=== PATIENT | male | born 1935 | race Caucasian/White ===

== ENCOUNTER 2016-09-03 12:38 | Day surgery (SDC) | payer MEDICARE, BC, OTHER ==
[~2016-09-03 12:38] MED LIST: CIPROFLOXACIN HCL 500 MG TABLET PO PRN
[2016-09-03] MEDS ORDERED: LIDOCAINE HCL 10 APPL CARTRIDGE TP ONE (13:29)
--- NOTE | 2016-09-03 13:38 | OR ---
Operative Report - Dictated Report Narrative: Location: Main OR Anesthesia: Lidocaine jelly per urethra Preoperative Diagnosis: Gross hematuria Postoperative Diagnosis: BPH with obstruction Procedure: #1 flexible cystoscopy with washing for cytology Indications: 81-year-old male with gross hematuria. CT urogram with small renal stone nonsurgical, nonspecific bowel findings. He has never had a colonoscopy. Presents today for cystoscopy to assess for potential bladder pathology/cause of hematuria Description: Consent obtained. Placed in the supine position. Prepped and draped. Time-out taken . Flexible Scope inserted into the urethra and navigated to the bladder with ease. No tumors stones or suspicious lesions mild trabeculation and decreased capacity Ureters normal in number and position On retroflexion fairly prominent intravesical prostate but broad-based. No median lobe. Does look a bit obstructing. Medium, bilobar hypertrophy again does look somewhat obstructing with some hypervascularity. Normal urethra minus some nonspecific urethritis EBL: 0 Specimen: Washing for cytology and culture Condition: tolerate procedure Important Findings: BPH with obstruction. Cytology pending. FOLLOW UP: 6 month ultrasound/flow/UA/creatinine. Gen. surgery for consideration of colonoscopy as he has never had one. Not sure as to the clinical significance of the nonspecific CT scan findings
[2016-09-03 14:12] VITALS: BP 127/72
== END 2016-09-03 12:39 | disposition home or self-care (01) ==
LOC: AMB 12:38
PROVIDERS: ATTEND Urology
PROC: 3E1K88X Irrigation of Genitourinary Tract using Irrigating Substance, Via Natural or Artificial Opening Endoscopic, Diagnostic (ICD-10-PCS; 2016-09-03)
PROC: 0TJB8ZZ Inspection of Bladder, Via Natural or Artificial Opening Endoscopic (ICD-10-PCS; principal; 2016-09-03 13:45)
DX: N40.1 Benign prostatic hyperplasia with lower urinary tract symptoms (principal); N13.8 Other obstructive and reflux uropathy; Z68.24 Body mass index [BMI] 24.0-24.9, adult

== ENCOUNTER 2016-12-24 13:47 | Emergency (ER) | payer MEDICARE, BC, OTHER ==
[2016-12-24 14:15] LABS: Prothrombin Time (Patient) 11.5 Seconds (9.4-11.4)
--- NOTE | 2016-12-24 14:18 | ERNOTE ---
Chest Pain/Cardiac HPI Chief Complaint: Chest Pain Source: patient Exam Limitations: no limitations Immunizations: IMMUNIZATION HX Immunizations Up to Date Yes History of Influenza Vaccine Yes Hx Pneumococcal Vaccination Yes Allergies/Adverse Reactions: Allergies No Known Allergies Allergy (Unverified 09/03/16 13:05) Home Medications: HOME MEDICATIONS Tamsulosin HCl [Flomax] 0.4 mg PO HS 12/30/13 [Last Taken Unknown] Aspirin 81 mg PO DAILY 09/03/16 [Last Taken 09/02/16 07:00] Carbidopa/Levodopa [Carbidopa-Levodopa 25-100 Tab] 1.5 each PO QID 09/03/16 [ Last Taken 09/02/16 20:00] Docusate Sodium [Colace] 100 mg PO DAILY 09/03/16 [Last Taken 09/02/16 07:00] Hydrochlorothiazide 50 mg PO DAILY 09/03/16 [Last Taken 09/02/16 07:00] Levothyroxine Sodium [Synthroid] 100 mcg PO DAILY 09/03/16 [Last Taken 09/02/16 07:00] Loratadine [Claritin] 10 mg PO DAILY 09/03/16 [Last Taken 09/02/16 07:00] Omeprazole 40 mg PO DAILY 09/03/16 [Last Taken 09/02/16 07:00] Potassium Chloride [K-Dur] 10 meq PO DAILY 09/03/16 [Last Taken 09/02/16 07:00] Rosuvastatin Calcium [Crestor] 20 mg PO DAILY 09/03/16 [Last Taken 09/02/16 07: 00] Sertraline HCl [Zoloft] 50 mg PO DAILY 09/03/16 [Last Taken 09/02/16 07:00] Sodium Chloride [Barry Saline Nasal Drops] 1 drop NS BID 09/03/16 [Last Taken 21:00] traMADol HCL [Ultram] 50 mg PO QID PRN 09/03/16 [Last Taken Unknown] Narrative: Patient has a history of CAD with a stent placed in 2007. He states that usually he gets mild chest pain prior to dinner that resolves with eating. Today as he was eating the pain got worse and he felt like something was stuck. The pain started to get better prior to receiving nitro and has resolved now. He does not remember what symptoms he had prior to the stent placement. Date (Duration): 12/24/16 Time (Timing): 12:45 Timing: resolved prior to arrival Severity/Quality: pressure Location: central Modifying Factors - Worsens: Present: eating Nitro Today/Relief: 0.4 mg x 1 Aspirin Treatment Today: 81 mg x 1 - refused further ASA Review of Systems - Review of Systems Constitutional: Absent: recent illness, fever ENT: Absent: sore throat Respiratory: Absent: shortness of breath Cardiology: Present: See HPI, chest pain Gastrointestinal/Abdominal: Absent: nausea, vomiting, abdominal pain Genitourinary: Present: no symptoms reported Neurological: Present: headache - since nitro - Patient's Past Medical History Patient History - Medical: Other - parkinson's Patient History - Cardiac/Respiratory: Coronary Heart Disease, CVA/Stroke, Myocardial Infarction Patient History - Cancer: Non Hodgkins Lymphoma Patient History - Surgical Procedures: No surgical history Patient History - Other: None - Social History Living Situations: senior living Psych History: No pertinent hx Does anyone smoke in the home?: No Smoking Status: Never smoker Alcohol Use: none Drug Use: none - Immunizations Immunizations Up to Date: Yes Hx Pneumococcal Vaccination: Yes History of Influenza Vaccine: Yes Physical Exam - Physical Exam General Appearance: Present: wd/wn, alert, no apparent distress Eye Exam: Normal inspection: bilateral Respiratory: Present: no respiratory distress, normal breath sounds, no accessory muscle use, chest nontender, lungs clear Cardiovascular/Chest: Present: regular rate, rhythm, no murmur, normal peripheral pulses Gastrointestinal/Abdominal: Present: normal bowel sounds, nontender, nondistended, soft Extremity Exam: Present: no edema Neurological Exam: Present: alert, oriented, normal mood/affect Skin Exam: Present: normal color, warm/dry ED Progress - Results and Orders Patient's Lab Results:: I have reviewed the patient's lab results. - Vital Signs Patient's Vital Signs:: I have reviewed the patient's vital signs. Vital Signs: Vital Signs 12/24/16 13:49 Temperature 36.9 C Pulse Rate 72 Respiratory 17 Rate Blood Pressure 107/60 O2 Sat by Pulse 97 Oximetry - EKG EKG: atrial fibrillation, RBBB, other - no acute changes EKG read: Interp. by md - X-Ray X-Ray #1 X-Ray: chest - no new cardiovascular findings, new T11 wedge Interpretation: Reviewed by me - Progress/Reassessment Chief Complaint: Chest Pain Progress Note-Subjective: 12/24/16 15:05 discussed results with patient, from history, exam and test results cardiac event unlikely patient is feeling back to baseline, ready to go back to care center Departure - Departure Clinical Impression: Chest pain Qualifiers: Chest pain type: other chest pain Qualified Code(s): R07.89 - Other chest pain ; R07.8 - Other chest pain Disposition: [facility] Condition: Good Referrals: Yunior Hassan MD [Primary Care Provider] -
[2016-12-24 14:19] LABS: Hematocrit 43.7 % (42.0-52.0); Hemoglobin 14.9 gm/dL (13.5-18.0); Mean Cell Volume 87.6 fl (78-100); Mean Corpuscular Hemoglobin 29.9 pg (27-31); Mean Corpuscular Hgb Conc 34.1 g/dl (32-36); Neutrophil # 4.9 K/mm3 (1.3-6.0); Neutrophil % 59.5 % (42-75.0); Platelet Count 169 K/mm3 (150-450); Red Blood Count 4.99 M/mm3 (4.7-6.0); Red Cell Distribution Width 14.6 % (11.5-14.0); White Blood Count 8.2 K/mm3 (4.0-10.5)
[2016-12-24 14:22] LABS: Albumin * 3.3 gm/dl (3.4-5.0); Anion Gap 9.9 mmol/L (6.8-13.8); BUN/Creatinine Ratio 11.3 (9.0-21.6); Bilirubin, Total 0.6 mg/dL (0.0-1.1); Ca. Corrected For Albumin 8.7 mg/dL (8.4-10.2); Calcium * 8.5 mg/dL (7.9-10.9); Carbon Dioxide 31.6 mmol/L (24-32.6); INR 1.11 INR (0.90-1.10); Partial Thrombolplastin Time 26.9 Seconds (24-32); Potassium 3.5 mmol/L (3.4-4.6); Total Protein 6.9 gm/dL (6.2-8.2); Troponin I 0.018 ng/ml (0.00-0.10)
--- OUTSIDE RECORDS SUMMARY | 2016-12-24 14:36 | XMS REPORT | Continuity of Care Document ---
:1935 Author Organization [facility] ([facility]) Address [address] [place] [address] Phone [phone] Care Team Providers Name Role Phone Yunior Szymanski Primary Care Provider [phone] Source Comments This disclosure is being made pursuant to the Care Everywhere program, applicable federal and state laws, and may not contain all informaitonavailable regarding this patient.[facility] ([facility]) Active Allergies and Adverse Reactions Allergen Noted Date Severity Reactions Comments Adhesive Urticaria (Hives),Desquamation Lactose OTHER tolerates yogurt Shellfish Derived 06/25/2016 Unknown Current Medications Prescription Sig. Disp. Refills Start Date End Date Status clopidogrel (PLAVIX) 75 take 75 mg by Active mg tablet mouth daily. nitroglycerin (NITROSTAT) place 0.4 mg Active 0.4 mg SL tablet under the tongue every 5 minutes as needed for Chest pain. rosuvastatin (CRESTOR) 20 take 20 mg by Active mg tablet mouth daily. aspirin 81 mg EC tablet take 81 mg by Active mouth daily. loratadine (CLARITIN) 10 Take 10 mg by Active mg tablet mouth daily. " wal-atin " Indications: ALLERGIC RHINITIS Docusate Sodium 100 mg Take by mouth Active Tab as needed. Levothyroxine 100 mcg cap Take 125 mcg by Active mouth SERTraline 100 mg tablet Take 75 mg by Active mouth daily. traMADol 50 mg tablet Take 50 mg by Active mouth 2 times daily. CARBIDOPA-LEVODOPA 25-100 4 times daily 04/16/2015 Active mg per tablet OMEPRAZOLE 40 mg enteric 40 mg 05/03/2015 Active coated capsule sodium chloride (AYR) Apply topically Active topical gel as needed. hydroCHLOROthiazide 50 mg Take 50 mg by Active tablet mouth daily. potassium chloride PO Take 20 mEq by Active mouth 2 times daily. DEXTRAN 70/HYPROMELLOSE Active (ARTIFICIAL TEARS (PF) OPHTH) SIMETHICONE (GAS-X PO) Active ACETAMINOPHEN (TYLENOL Active PO) MAGNESIUM HYDROXIDE (MILK Active OF MAGNESIA PO) GUAIFENESIN (MUCINEX PO) Active polyethylene glycol 3350 Take 17 g by Active 17 gram packet mouth daily as needed. tamsulosin 0.4 mg capsule Take 0.4 mg by Active mouth daily. 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/25/2016 Tinnitus, subjective 06/25/2016 Hearing loss 06/05/2016 Chemotherapy follow-up examination 10/15/2006 Hodgkin's disease, unspecified(201.90) 02/11/2006 Swelling, mass, or lump in head and neck 12/30/2005 Swelling, mass, or lump in chest 12/02/2005 Unspecified hereditary and idiopathic peripheral neuropathy 10/12/2005 Unspecified pleural effusion 10/02/2005 Hodgkin's disease, nodular sclerosis, unspecified site, extranodal and 2005 solid organ sites Other specified diseases of pericardium 09/30/2005 Most Recent Encounters Date Type Specialty Providers Description 10/31/2016 Office Visit Audiology Jt Gu MD Dx: Bilateral sensorineural Santana, Renetta A hearing loss (Primary Dx) 10/15/2016 Office Visit Audiology Jt Gu MD Chief Comp: Patient Renetta Dillon Reported Reason For Visit 10/01/2016 Office Visit Audiology Jt Gu MD Dx: Bilateral sensorineural Santana, Renetta A hearing loss (Primary Dx) Immunizations Name Dates Previously Given Next Due Influenza 05/17/2013 Influenza, quadrivalent PF 05/23/2014 Influenza, unspecified 06/12/2009,05/27/2006 Social History Tobacco Use Types Packs/Day Years Used Date Never Smoker Smokeless Tobacco: Never Used Tobacco Cessation:Counseling Given: Yes Comments: Alcohol Use Drinks/Week oz/Week Comments No 0 Standard drinks or equivalent 0.0 None since 2009 Last Filed Vital Signs Vital Sign Reading Time Taken Blood Pressure 134/75 08/21/2016 3:00 PM [employer] Pulse 86 08/21/2016 7:52 AM [employer] Temperature 37 C (98.6 F) 08/21/2016 12:00 PM [employer] Respiratory Rate 16 08/21/2016 7:52 AM [employer] Height 1.753 m (5' 9") 08/21/2016 7:52 AM [employer] Weight 78.9 kg (173 lb 15.1 oz) 08/21/2016 7:52 AM [employer] Body Mass Index 25.68 08/21/2016 7:52 AM [employer] Oxygen Saturation 96% 08/21/2016 12:30 PM [employer] Plan of Care Date Type Specialty Providers Description 12/30/2016 Appointment Audiology Jt Gu MD [address] [place] [phone] (Fax) Chief Comp: Patient Irene Estrada Brianne Reported Reason For Visit Health Maintenance Due Date Last Done Comments Hepatitis B Vaccine (1 of 3 1935 - Primary Series) Tdap Vaccine 1946 Lipid Disorder Screening 1953 Td Vaccine 1953 Colonoscopy 04/24/1985 Zoster Vaccine 1995 Pneumococcal Vaccine (1 of 2 2000 - PCV13) Influenza Vaccine: Seasonal 03/10/2016 05/23/2014, Additional history exists (#1) 05/17/2013, 06/12/2009 Results from Last 3 Months Not on file
[2016-12-24 16:17] VITALS: BP 101/51
== END 2016-12-24 16:51 ==
LOC: ER 13:47
DX: R07.89 Other chest pain (principal); Z85.72 Personal history of non-Hodgkin lymphomas